=== PATIENT | female | born 1975 | race American Indian/Alaskan Native ===

== ENCOUNTER 2018-04-27 17:47 | Emergency (ER) | payer BC, OTHER ==
[2018-04-27 19:08] VITALS: BP 166/92
[2018-04-27 20:25] LABS: Amorphous Crystals,Urine Few; Bilirubin,Urine NEG (Negative); Blood,Urine MOD (Negative); Color,Urine Yellow (Yellow); Mucus,Urine 3+ /HPF
== END 2018-04-27 21:07 | disposition left against medical advice (07) ==
LOC: ED 17:47
DX: R10.9 Unspecified abdominal pain (principal); Z53.21 Procedure and treatment not carried out due to patient leaving prior to being seen by health care provider
CPT/HCPCS: 81001